=== PATIENT | female | born 1950 | race Caucasian/White ===

== ENCOUNTER 2016-11-10 07:11 | Emergency (ER) | payer OTHER ==
--- NOTE | 2016-11-10 07:16 | CP.PCM.PN ---
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 Patient reportedly fell forward onto her knees and outstretched hands. Patient was alert, awake, oriented x 3, talking and not in any clinical distress. Patient denies hitting her head. Patient wheeled to ED and endorsed to the ER physician. <Nguyen Sharif - Last Filed: 11/10/16 07:25> Attending/Attestation - Attestation I have personally seen and examined this patient.: No I have fully participated in the care of the patient.: No Notes (Text): 11/10/16 07:21 Pt was already being wheeled into the ER when [facility] responded to the rapid response call.Reportedly she fell outside the radiology hallway which is very close to the ER.
[2016-11-10 07:26] VITALS: TEMP 98.2
--- NOTE | 2016-11-10 07:35 | ED PDOC ---
Arrival/HPI - General Time Seen by Provider: 11/10/16 07:12 Historian: Patient - History of Present Illness Narrative History of Present Illness (Text): 11/10/16 07:12 Niranjan Campo is a 66 year old female, whose past medical history includes bilateral knee arthroscopy, hypertension, Arthritis, and high cholesterol, who presents to the emergency department complaining of a fall in the hospital prior to arrival. Patient states that she was walking in for work when she "was not feeling herself" and felt herself fall to the ground. Patient cannot explain how she suddenly fell and denies feeling any symptoms prior to fall. Patient denies any loss of consciousness and head injury. At present, patient states that she feels dizzy. Patient notes that she has a history of chronic knee pain due to arthritis and fell two weeks ago. Patient denies any shortness of breath, chest pain, vision changes, numbness, weakness, or any other complaint at this time. PMD: Dr. Castle Time/Duration: 1 hour Symptom Onset: Sudden Symptom Course: Improving Severity Level: Mild Activities at Onset: Rest Context: Home Past Medical History - Provider Review Nursing Documentation Reviewed: Yes Family/Social History - Physician Review Nursing Documentation Reviewed: Yes Family/Social History: No Known Family HX Allergies/Home Meds Allergies/Adverse Reactions: Allergies No Known Allergies Allergy (Unverified 11/10/16 08:01) Home Medications: Home Meds Medication Instructions Recorded Confirmed Unobtainable 11/10/16 11/10/16 Review of Systems - Physician Review All systems were reviewed & negative as marked: Yes - Review of Systems Constitutional: Other (Fall). absent: Fevers, Night Sweats Eyes: absent: Vision Changes ENT: absent: Hearing Changes Respiratory: absent: SOB, Cough Cardiovascular: absent: Chest Pain Gastrointestinal: absent: Abdominal Pain Genitourinary Female: absent: Dysuria Musculoskeletal: absent: Arthralgias Skin: absent: Rash Neurological: Dizziness Endocrine: absent: Diaphoresis Hemo/Lymphatic: absent: Adenopathy Physical Exam Vital Signs Temp Pulse Resp BP Pulse Ox 11/10/16 09:53 83 18 126/74 96 11/10/16 08:41 79 18 125/77 96 11/10/16 07:37 89 18 156/82 H 11/10/16 07:36 84 18 148/88 11/10/16 07:35 85 18 139/87 11/10/16 07:23 98.2 F 87 19 154/90 H 97 - Systems Exam Head: Present: Atraumatic, Normocephalic Pupils: Present: PERRL Extroacular Muscles: Present: EOMI Conjunctiva: Present: Normal Mouth: Present: Moist Mucous Membranes Neck: Present: Normal Range of Motion Respiratory/Chest: Present: Clear to Auscultation, Good Air Exchange. No: Respiratory Distress, Accessory Muscle Use Cardiovascular: Present: Regular Rate and Rhythm, Normal S1, S2. No: Murmurs Abdomen: Present: Normal Bowel Sounds. No: Tenderness, Distention, Peritoneal Signs Back: Present: Normal Inspection Upper Extremity: Present: Normal Inspection. No: Cyanosis, Edema Lower Extremity: Present: Normal Inspection. No: Edema Neurological: Present: GCS=15, CN II-XII Intact, Speech Normal Skin: Present: Warm, Dry, Normal Color. No: Rashes Psychiatric: Present: Alert, Oriented x 3, Normal Insight, Normal Concentration Medical Decision Making ED Course and Treatment: 11/10/16 07:17 Impression: 66 year old female complaining of "not feeling herself" and a fall prior to arrival. Differential Diagnosis included but are not limited to: Near syncope vs. Dizziness Plan: -- Head CT w/o contrast -- EKG -- Chest X-ray -- Urinalysis -- Labs -- IV Fluids -- Reassess and disposition Progress Notes: 11/10/16 07:20 EKG: Ordered, reviewed, and independently interpreted the EKG. Rate : 93 BPM Rhythm : NSR Interpretation : No ST-segment elevations or depressions, no T-wave inversions, normal intervals. Comparison : No previous EKG for comparison. 11/10/16 08:37 Reviewed radiology, chest x-ray is normal. 11/10/16 09:39 CT HEAD WITHOUT CONTRAST: Dictator : Isiah Reid MD FINDINGS: HEMORRHAGE:No intracranial hemorrhage. BRAIN:No mass effect or edema. No atrophy or chronic microvascular ischemic changes. VENTRICLES:Unremarkable. No hydrocephalus. CALVARIUM:Unremarkable. PARANASAL SINUSES:Unremarkable as visualized. No significant inflammatory changes. MASTOID AIR CELLS:Unremarkable as visualized. No inflammatory changes. OTHER FINDINGS:None. IMPRESSION: No acute findings 11/10/16 9:53 Patient feels completely better. She denies any pain or dizziness or lightheadedness. CT negative. Labs negative. She has great follow up with her PMD Dr. Castle. She will see him as an outpatient. Advised to return to the ED if symptoms worsen or any other concern. - Lab Interpretations Lab Results: 11/10/16 07:25 11/10/16 07:25 Lab Results 11/10/16 07:46: Urine Color Yellow, Urine Appearance Clear, Urine pH 6.0, Ur Specific [place] 1.015, Urine Protein Negative, Urine Glucose (UA) Negative, Urine Ketones Negative, Urine Blood Trace-intact H, Urine Nitrate Negative, Urine Bilirubin Negative, Urine Urobilinogen 0.2, Ur Leukocyte Esterase Trace H , Urine RBC 0 - 2, Urine WBC 1 - 3, Ur Epithelial Cells 0 - 2, Urine Bacteria Trace 11/10/16 07:25: Sodium 141, Potassium 3.7, Chloride 106, Carbon Dioxide 25, Anion Gap 14, BUN 15, Creatinine 0.7, Est GFR ( Amer) > 60, Est GFR (Non- Af Amer) > 60, Random Glucose 97, Calcium 9.2, Magnesium 2.1, Total Bilirubin 0.6, AST 34, ALT 27, Alkaline Phosphatase 87, Lactate Dehydrogenase 463, Total Creatine Kinase 85, Troponin I < 0.01, Total Protein 7.9, Albumin 4.1, Globulin 3.8, Albumin/Globulin Ratio 1.1 11/10/16 07:25: WBC 8.1 D, RBC 3.82, Hgb 11.7 L, Hct 34.8 L, MCV 91.1, MCH 30.6 , MCHC 33.6, RDW 14.1, Plt Count 255, MPV 9.8, Neutrophils % (Manual) 29 L, Lymphocytes % (Manual) 52 H, Monocytes % (Manual) 15 H, Eosinophils % (Manual) 3 , Basophils % (Manual) 1, Platelet Evaluation Normal I have reviewed the lab results: Yes - RAD Interpretation Radiology Orders: 11/10/16 07:20 CHEST PORTABLE [RAD] Stat 11/10/16 07:21 HEAD W/O CONTRAST [CT] Stat - Medication Orders Current Medication Orders: Discontinued Medications Sodium Chloride (Sodium Chloride 0.9%) 1,000 mls @ 100 mls/hr IV .Q10H HERMILO Last Admin: 11/10/16 07:43 Dose: 100 mls/hr - Scribe Statement The provider has reviewed the documentation as recorded by the Apolonia Mac Provider Jenniferibe Attestation: All medical record entries made by the Jenniferibe were at my direction and personally dictated by me. I have reviewed the chart and agree that the record accurately reflects my personal performance of the history, physical exam, medical decision making, and the department course for this patient. I have also personally directed, reviewed, and agree with the discharge instructions and disposition. Disposition/Present on Arrival - Present on Arrival Any Indicators Present on Arrival: No - Disposition Have Diagnosis and Disposition been Completed?: Yes Diagnosis: Dizziness, Fall Disposition: HOME/ ROUTINE Disposition Time: 09:53 Patient Plan: Discharge Condition: IMPROVED Discharge Instructions (ExitCare): Dizziness (ED) Additional Instructions: Ms Campo, thank you for letting us take care of you today. Your provider was Dr. Juarez. You were treated for Dizziness, Fall. The emergency medical care you received today was directed at your acute symptoms. If you were prescribed any medication, please fill it and take as directed. It may take several days for your symptoms to resolve. Return to the Emergency Department if your symptoms worsen, do not improve, or if you have any other problems. Please contact your doctor or call one of the physicians/clinics you have been referred to that are listed on the Patient Visit Information form that is included in your discharge packet. Bring any paperwork you were given at discharge with you along with any medications you are taking to your follow up visit. Our treatment cannot replace ongoing medical care by a primary care provider (PCP) outside of the emergency department. Thank you for allowing the [facility] team to be part of your care today. If you had an X-Ray or CT scan: A Radiologist will review the ED reading if any change in treatment is needed we will contact you. If you had a blood, urine, or wound culture: It will take several days for the results, if any change in treatment is needed we will contact you. If you had an STI test: It will take 48 hours for the results. Please call after 1 week if you have not heard back. Referrals: Andrews Castle MD [Primary Care Provider] - Follow up with primary Forms: [employer] ([place]), WORK NOTE
[2016-11-10 07:36] VITALS: RESP 18
[2016-11-10 07:42] LABS: HEMOGLOBIN 11.7 gm/dL (12.0-16.0); MEAN CELL VOLUME 91.1 fL (80.0-105.0); MEAN CORPUSCULAR HEMOGLOBIN 30.6 pg (25.0-35.0); MEAN CORPUSCULAR HGB CONC 33.6 g/dl (31.0-37.0); MEAN PLATELET VOLUME 9.8 fl (7.0-11.0); PLATELET COUNT 255 10^3/uL (120.0-450.0); RBC 3.82 10^6/uL (3.5-6.1); RED CELL DISTRIBUTION WIDTH 14.1 % (11.5-14.5); WHITE BLOOD COUNT 8.1 10^3/ul (4.5-11.0)
[2016-11-10] MEDS ORDERED: Sodium Chloride 0.9% 1,000 ML IV SCH (07:45)
[2016-11-10 07:50] LABS: ALB/GLOB RATIO 1.1 (1.1-1.8); ALBUMIN 4.1 g/dL (3.0-4.8); ALT/SGPT 27 U/L (7-56); AST/SGOT 34 U/L (15-39); BLOOD UREA NITROGEN 15 mg/dL (7-21); CALCIUM 9.2 mg/dL (8.4-10.5); GFR AFRICAN-AMERICAN > 60; GFR NON-AFRICAN AMERICAN > 60; MAGNESIUM 2.1 mg/dL (1.7-2.2)
[2016-11-10 07:58] LABS: URINE BILIRUBIN NEGATIVE (NEGATIVE); URINE BLOOD TRACE-INTACT (NEGATIVE); URINE GLUCOSE (UA) NEGATIVE (NEGATIVE); URINE LEUKOCYTE ESTERASE TRACE Leu/uL (NEGATIVE); URINE NITRATE NEGATIVE (NEGATIVE); URINE PROTEIN NEGATIVE mg/dL (<30 mg/dL); URINE UROBILINOGEN 0.2 E.U./dL (<1 E.U./dL)
[2016-11-10 07:59] LABS: BASOPHIL 1 % (0.0-1.0); EOSINOPHIL 3 % (0.0-3.0); LYMPHOCYTE 52 % (22.0-35.0); MONOCYTE 15 % (1.0-6.0); NEUTROPHIL 29 % (50.0-70.0); PLATELET ESTIMATE NORMAL (NORMAL)
[2016-11-10 08:00] LABS: URINE APPEARANCE CLEAR (CLEAR); URINE COLOR YELLOW (YELLOW)
[2016-11-10 08:03] LABS: TROPONIN I < 0.01 ng/mL
[2016-11-10 08:20] LABS: URINE EPITHELIAL CELLS 0 - 2 /hpf (0-5); URINE RBC 0 - 2 /hpf (0-2)
[2016-11-10 08:21] LABS: URINE BACTERIA TRACE (NEG)
--- NOTE | 2016-11-10 08:43 | RAD ---
HISTORY: syncope COMPARISON: No prior. FINDINGS: LUNGS: No active pulmonary disease. PLEURA: No significant pleural effusion identified, no pneumothorax apparent. CARDIOVASCULAR: Normal. OSSEOUS STRUCTURES: No significant abnormalities. VISUALIZED UPPER ABDOMEN: Normal. OTHER FINDINGS: None. IMPRESSION: No active disease.
--- NOTE | 2016-11-10 08:47 | CT ---
PROCEDURE: CT HEAD WITHOUT CONTRAST. HISTORY: dizziness COMPARISON: 05/04/2016 TECHNIQUE: Axial computed tomography images were obtained through the head/brain without intravenous contrast. Radiation dose: Total exam DLP = 690 mGy-cm. This CT exam was performed using one or more of the following dose reduction techniques: Automated exposure control, adjustment of the mA and/or kV according to patient size, and/or use of iterative reconstruction technique. FINDINGS: HEMORRHAGE: No intracranial hemorrhage. BRAIN: No mass effect or edema. No atrophy or chronic microvascular ischemic changes. VENTRICLES: Unremarkable. No hydrocephalus. CALVARIUM: Unremarkable. PARANASAL SINUSES: Unremarkable as visualized. No significant inflammatory changes. MASTOID AIR CELLS: Unremarkable as visualized. No inflammatory changes. OTHER FINDINGS: None. IMPRESSION: No acute findings
[2016-11-10 08:55] VITALS: O2SAT 96
[2016-11-10 09:54] VITALS: BP 126/74; PULSE 83
--- NOTE | 2016-11-10 09:57 | CARD ---
APPROVED REPORT EKG Measurement Heart [id number] <Conclusion> Normal sinus rhythm Voltage criteria for left ventricular hypertrophy
== END 2016-11-10 09:55 | disposition home or self-care (01) ==
LOC: ED 07:11
DX: R42 Dizziness and giddiness (principal)
CPT/HCPCS: 70450; 71010; 80053; 81001; 82550; 83615; 83735; 84484; 85025; 87086; 93005; 99285; J7040

== ENCOUNTER 2017-01-04 06:43 | Day surgery (SDC) | payer OTHER ==
[2016-12-29 11:05] VITALS: BMI 27.1
[2017-01-04] MEDS ORDERED: Propofol 10 mg/ml Inj (20 ML) ONE (08:08)
[2017-01-04] MEDS ORDERED: Lidocaine 2% Inj (20ml) ONE (08:52)
[2017-01-04] MEDS ORDERED: Sodium Chloride 0.9% 1,000 ML IV SCH (09:00)
[2017-01-04 09:02] VITALS: PULSE 67
[2017-01-04 09:44] VITALS: BP 121/70; RESP 20; TEMP 97.9; O2SAT 98
== END 2017-01-04 10:13 | disposition home or self-care (01) ==
LOC: ENDO 06:43
PROVIDERS: ATTEND Specialist
DX: Z12.11 Encounter for screening for malignant neoplasm of colon (principal); K57.30 Diverticulosis of large intestine without perforation or abscess without bleeding; Q43.8 Other specified congenital malformations of intestine; K64.8 Other hemorrhoids; R13.10 Dysphagia, unspecified; K29.70 Gastritis, unspecified, without bleeding; K21.0 Gastro-esophageal reflux disease with esophagitis; K44.9 Diaphragmatic hernia without obstruction or gangrene; I10 Essential (primary) hypertension; M19.90 Unspecified osteoarthritis, unspecified site
CPT/HCPCS: 43239; 45378; 88305; 88312; 88342; J2704; J7040 ×2